=== PATIENT | female | born 1975 | race Caucasian/White ===

== ENCOUNTER 2023-12-20 09:08 | Outpatient (CLI) | payer BC, OTHER | END 2023-12-20 23:59 | disposition home or self-care (01) | LOC: MRI02 09:08 | PROVIDERS: ATTEND Physician Assistant Surgical | DX: M25.462 Effusion, left knee (principal); M22.42 Chondromalacia patellae, left knee; M76.52 Patellar tendinitis, left knee; M25.562 Pain in left knee; R60.9 Edema, unspecified | CPT/HCPCS: 73721 ==